=== PATIENT | female | born 1970 ===

== ENCOUNTER 2017-05-12 21:30 | Observation (INO) | payer BC, OTHER ==
[2017-05-12] MEDS ORDERED: Sodium Chloride 0.9% 1,000 ML IV STA (22:02)
[2017-05-12] MEDS ORDERED: DiphenhydrAMINE 50 mg/ml Inj IVP STA (22:02)
--- NOTE | 2017-05-12 22:26 | ED PDOC ---
HPI: Headache Time Seen by Provider: 05/12/17 21:45 Chief Complaint (Nursing): Headache Chief Complaint (Provider): Headache History Per: Patient History/Exam Limitations: no limitations Onset/Duration Of Symptoms: Days (x2) Current Symptoms Are (Timing): Still Present Additional Complaint(s): Ofelia Santa is a 46 year old female who presents to the emergency department with a complaint of left-sided headache radiating to left neck and shoulder associated with nausea and tingling sensation of left hand ongoing for 2 days. Denied focal weakness, blurry vision, or numbness. Patient stated she has been taking Tylenol with no improvement of symptoms. Of note, patient occasionally receives iron infusion for her anemia. PMD: Shira Fleming MD Past Medical History Reviewed: Historical Data, Nursing Documentation, Vital Signs Vital Signs: Last Vital Signs Temp 98.2 F 05/12/17 21:35 Pulse 73 05/12/17 21:35 Resp 16 05/12/17 21:35 BP 128/81 05/12/17 21:35 Pulse Ox 100 05/12/17 21:35 - Medical History PMH: Anemia, Asthma - Surgical History Surgical History: No Surg Hx - Family History Family History: States: No Known Family Hx - Social History Current smoker - smoking cessation education provided: No Alcohol: None Drugs: Denies - Immunization History Hx Tetanus Toxoid Vaccination: No Hx Influenza Vaccination: No Hx Pneumococcal Vaccination: No - Allergies Allergies/Adverse Reactions: Allergies Allergy/AdvReac Type Severity Reaction Status Date / Time aspirin Allergy RASH Uncoded 05/12/17 21:35 Review of Systems ROS Statement: Except As Marked, All Systems Reviewed And Found Negative (and as per HPI) Eyes: Negative for: Vision Change (blurry) Gastrointestinal: Positive for: Nausea Musculoskeletal: Positive for: Neck Pain (left), Shoulder Pain (left) Neurological: Positive for: Headache (left sided), Other (tingling of left hand) . Negative for: Weakness (focal), Numbness Physical Exam - Reviewed Nursing Documentation Reviewed: Yes Vital Signs Reviewed: Yes - Physical Exam Appears: Positive for: Non-toxic, In Acute Distress (and tired appearing) Head Exam: Positive for: ATRAUMATIC, NORMOCEPHALIC Skin: Positive for: Warm, Dry, Pallor Eye Exam: Positive for: EOMI, PERRL, Other (sunken orbits). Negative for: Conjunctival injection ENT: Positive for: Pharynx Is (clear), Other (muc memb moist) Neck: Positive for: Painless ROM, Supple Cardiovascular/Chest: Positive for: Regular Rate, Rhythm, Chest Non Tender. Negative for: Murmur Respiratory: Positive for: Normal Breath Sounds. Negative for: Respiratory Distress Gastrointestinal/Abdominal: Positive for: Soft. Negative for: Tenderness Back: Positive for: Normal Inspection. Negative for: Decreased ROM Extremity: Positive for: Normal ROM. Negative for: Deformity Lymphatic: Negative for: Adenopathy Neurologic/Psych: Positive for: Alert, Oriented (x3), Cerebellar Tests (normal) . Negative for: Motor/Sensory Deficits, Aphasia, Facial Droop - Laboratory Results Result Diagrams: 05/13/17 13:11 05/12/17 22:30 - ECG O2 Sat by Pulse Oximetry: 100 (RA) Pulse Ox Interpretation: Normal Medical Decision Making Medical Decision Making: Initial Impression: LLQ pain; HTN Differential diagnosis: Renal colic, diverticulitis, colitis, abdominal aortic aneurysm, abdominal strain Initial Plan: * Type and screen * CT head without contrast * Labs * Drug screen, urine * Magnesium * Phosphorous * Urine dipstick * Urine * Tylenol 975mg PO * Benadryl 25mg IVP * Reglan 10mg IVP * NS 1,000ml IV per 1,000mls/hr * Accucheck XAM: CT Head Without Intravenous Contrast CLINICAL HISTORY: 46 years old, female; Pain; Headache; Headache not specified; Additional info: Headache. Lt facial numness TECHNIQUE: Axial computed tomography images of the head/brain without intravenous contrast. All CT scans at this facility use one or more dose reduction techniques, viz.: automated exposure control; ma/kV adjustment per patient size (including targeted exams where dose is matched to indication; i.e. head); or iterative reconstruction technique. Coronal and sagittal reformatted images were created and reviewed. COMPARISON: CT - HEAD W/O CONTRAST 09/08/2016 7:02:25 PM FINDINGS: Brain: No intracranial hemorrhage. No mass. No definite edema. Ventricles: No hydrocephalus. Bones/joints: No acute fracture. Soft tissues: Unremarkable. Sinuses: No acute sinusitis. Mastoid air cells: No mastoid effusion. Orbits: Unremarkable as visualized. IMPRESSION: 1. No definite acute intracranial abnormality. Acute infarction may be CT occult within first 24 hours. If a focal deficit persists, consider followup CT or MRI for further evaluation. Thank you for allowing us to participate in the care of your patient. Dictated and Authenticated by: Peter Wisdom MD 05/12/2017 11:01 PM Eastern Time ([place] & [place]) Labs demonstrate anemia at level lower than previous visits. Will hospitalize for transfusion and Hem/Onc consult. Risk/benefits of blood transfusion d/w patient. KHALIDA Cavazos SACK REPAIRER for [facility]. Requests Dr Manuel for Hem onc DW pt findings and plan of care. reports headache improved but still feels tired. Scribe Attestation: Documented by Erinn Wood, acting as a scribe for Shelley Spencer MD. Provider Scribe Attestation: All medical record entries made by the Scribe were at my direction and personally dictated by me. I have reviewed the chart and agree that the record accurately reflects my personal performance of the history, physical exam, medical decision making, and the department course for this patient. I have also personally directed, reviewed, and agree with the discharge instructions and disposition. Disposition - Clinical Impression Clinical Impression: Anemia, Acute headache - Disposition Disposition Time: 23:30 Condition: FAIR - Pt Status Changed To: Hospital Disposition Of: Observation - POA Present On Arrival: None
[2017-05-12 22:43] LABS: BASO # 0.1 K/uL (0.0-0.2); BASO % 1.3 % (0.0-2.0); EOS # 0.3 K/uL (0.0-0.7); HEMOGLOBIN 7.9 g/dL (12.0-16.0); LYMPH # 1.1 K/uL (1.0-4.3); LYMPH % 16.7 % (20.0-40.0); MEAN CELL VOLUME 66.2 fl (81.0-99.0); MEAN CORPUSCULAR HEMOGLOBIN 19.4 pg (27.0-31.0); MEAN CORPUSCULAR HGB CONC 29.4 g/dL (33.0-37.0); MEAN PLATELET VOLUME 7.2 fl (7.2-11.7); MONO # 0.8 K/uL (0.0-0.8); MONO % 11.9 % (0.0-10.0); NEUT # 4.4 K/uL (1.8-7.0); NEUT % 66.1 % (50.0-75.0); RBC 4.09 Mil/uL (3.80-5.20); RED CELL DISTRIBUTION WIDTH 22.4 % (11.5-14.5); WHITE BLOOD COUNT 6.7 K/uL (4.8-10.8)
[2017-05-12] MEDS ORDERED: DiphenhydrAMINE 50 mg/ml Inj ONE (22:48)
[2017-05-12 22:52] LABS: SQUAMOUS EPITHIAL 1 /hpf (0-5); URINE BILIRUBIN NEGATIVE (NEGATIVE); URINE BLOOD SMALL (NEGATIVE); URINE CLARITY CLEAR (Clear); URINE COLOR YELLOW (YELLOW); URINE GLUCOSE (UA) NEG (Normal); URINE LEUKOCYTE ESTERASE TRACE Leu/uL (Negative); URINE NITRATE NEGATIVE (NEGATIVE); URINE PROTEIN NEGATIVE (NEGATIVE); URINE UROBILINOGEN 0.2-1.0 mg/dL (0.2-1.0)
[2017-05-12 22:54] LABS: ALB/GLOB RATIO 1.4 (1.0-2.1); ALT/SGPT 31 U/L (9-52); AST/SGOT 36 U/L (14-36); BLOOD UREA NITROGEN 23 mg/dl (7-17); CALCIUM 9.1 mg/dL (8.4-10.2); GFR AFRICAN-AMERICAN > 60; GFR NON-AFRICAN AMERICAN 60; MAGNESIUM 2.1 MG/DL (1.6-2.3)
[2017-05-12 23:01] LABS: BARBITURATES, UR NEGATIVE (NEGATIVE); BENZODIAZEPINES, UR NEGATIVE (NEGATIVE); OPIATES, UR NEGATIVE (NEGATIVE); PHENCYCLIDINE, UR NEGATIVE (NEGATIVE)
--- NOTE | 2017-05-12 23:02 | CT ---
EXAM: CT Head Without Intravenous Contrast CLINICAL HISTORY: 46 years old, female; Pain; Headache; Headache not specified; Additional info: Headache. Lt facial numness TECHNIQUE: Axial computed tomography images of the head/brain without intravenous contrast. All CT scans at this facility use one or more dose reduction techniques, viz.: automated exposure control; ma/kV adjustment per patient size (including targeted exams where dose is matched to indication; i.e. head); or iterative reconstruction technique. Coronal and sagittal reformatted images were created and reviewed. COMPARISON: CT - HEAD W/O CONTRAST 09/08/2016 7:02:25 PM FINDINGS: Brain: No intracranial hemorrhage. No mass. No definite edema. Ventricles: No hydrocephalus. Bones/joints: No acute fracture. Soft tissues: Unremarkable. Sinuses: No acute sinusitis. Mastoid air cells: No mastoid effusion. Orbits: Unremarkable as visualized. IMPRESSION: 1. No definite acute intracranial abnormality. Acute infarction may be CT occult within first 24 hours. If a focal deficit persists, consider followup CT or MRI for further evaluation.
--- NOTE | 2017-05-13 08:23 | CP.PCM.HP ---
History of Present Illness - History of Present Illness History of Present Illness: pt admitted for symptomatic anemia. c/o ehadache and dizziness started 2 days ago and worsening yestrday. has h/o uterine fibroid under care of urogynecology physician. at present feeling better after 1 unit prbc. Present on Admission - Present on Admission Any Indicators Present on Admission: No Review of Systems - Neurological Neurological: As Per HPI, Dizziness, Headaches Past Patient History - Infectious Disease Hx of Infectious Diseases: None - Past Medical History & Family History Past Medical History?: Yes - Past Social History Smoking Status: Never Smoked - CARDIAC Hx Cardiac Disorders: No - PULMONARY Hx Respiratory Disorders: Yes Hx Asthma: Yes - NEUROLOGICAL Hx Neurological Disorder: No - HEENT Hx HEENT Problems: No - RENAL Hx Chronic Kidney Disease: No - ENDOCRINE/METABOLIC Hx Endocrine Disorders: No - HEMATOLOGICAL/ONCOLOGICAL Hx Blood Disorders: Yes Hx AIDS: No Hx Anemia: Yes Hx Human Immunodeficiency Virus (HIV): No - INTEGUMENTARY Hx Dermatological Problems: No - MUSCULOSKELETAL/RHEUMATOLOGICAL Hx Musculoskeletal Disorders: No Hx Falls: No - GASTROINTESTINAL Hx Gastrointestinal Disorders: No - GENITOURINARY/GYNECOLOGICAL Hx Genitourinary Disorders: No - PSYCHIATRIC Hx Psychophysiologic Disorder: No Hx Substance Use: No - SURGICAL HISTORY Hx Surgeries: No - ANESTHESIA Hx Anesthesia: No Meds Allergies/Adverse Reactions: Allergies Allergy/AdvReac Type Severity Reaction Status Date / Time aspirin Allergy RASH Uncoded 05/12/17 21:35 Physical Exam - Constitutional Appears: Well, Non-toxic, No Acute Distress - Head Exam Head Exam: ATRAUMATIC, NORMAL INSPECTION, NORMOCEPHALIC - Eye Exam Eye Exam: EOMI, Normal appearance, PERRL Pupil Exam: NORMAL ACCOMODATION, PERRL - ENT Exam ENT Exam: Mucous Membranes Moist, Normal Exam - Neck Exam Neck exam: Positive for: Normal Inspection - Respiratory Exam Respiratory Exam: Clear to Auscultation Bilateral, NORMAL BREATHING PATTERN - Cardiovascular Exam Cardiovascular Exam: REGULAR RHYTHM, RRR, +S1, +S2 - GI/Abdominal Exam GI & Abdominal Exam: Normal Bowel Sounds, Soft. absent: Tenderness - Extremities Exam Extremities exam: Positive for: full ROM, normal capillary refill, normal inspection, pedal pulses present - Back Exam Back exam: NORMAL INSPECTION - Neurological Exam Neurological exam: Alert, CN II-XII Intact, Normal Gait, Oriented x3, Reflexes Normal - Psychiatric Exam Psychiatric exam: Normal Affect, Normal Mood - Skin Skin Exam: Dry, Intact, Normal Color, Warm Results - Vital Signs Recent Vital Signs: Last Vital Signs Temp 98.8 F 05/13/17 01:45 Pulse 61 05/13/17 01:45 Resp 18 05/13/17 01:45 BP 110/70 05/13/17 01:45 Pulse Ox 96 05/13/17 01:45 - Labs Result Diagrams: 05/12/17 22:30 05/12/17 22:30 Assessment & Plan (1) DVT prophylaxis Assessment and Plan: scd and ae hose ambulation Status: Acute (2) Acute headache Assessment and Plan: tylenol prn likely r/t anemia Status: Acute (3) Anemia Assessment and Plan: 2 unit prbc, 1 unit in repeat cbc outpt urogynecology physician Status: Acute Decision To Admit - Pt Status Changed To: Hospital Disposition Of: Observation - . Bed Request Type: Med/Surg Admitting Physician: Ruddy Silva
--- NOTE | 2017-05-13 11:41 | CP.PCM.CON ---
History of Present Illness - History of Present Illness History of Present Illness: 46 year old female with a history of mennorrhagia secondary to uterine fibroid, iron deficiency anemia on intermittent parenteral iron, admitted with symptomatic anemia. The patient reports to increasing fatigue, dyspnea on exertion, and dizziness which prompted her to come to the hospital. Her hgb was found to be 6.9. She is currently s/p 2U PRBC and reports to feeling better. Past medical history: menorrhagia, uterine fibroids, iron deficiency Past surgical history: None Family history: Denies hematologic and oncologic problems. Social history: Denies tobacco, alcohol, and illicit drug use. Allergies: Aspirin. Review of systems: All remaining review of systems including HEENT, cardiovascular, respiratory, gastrointestinal, genitourinary, musculoskeletal, dermatologic, neurologic, and psychiatric are negative unless mentioned in the HPI. Past Patient History - Infectious Disease Hx of Infectious Diseases: None - Past Medical History & Family History Past Medical History?: Yes - Past Social History Smoking Status: Never Smoked - CARDIAC Hx Cardiac Disorders: No - PULMONARY Hx Respiratory Disorders: Yes Hx Asthma: Yes - NEUROLOGICAL Hx Neurological Disorder: No - HEENT Hx HEENT Problems: No - RENAL Hx Chronic Kidney Disease: No - ENDOCRINE/METABOLIC Hx Endocrine Disorders: No - HEMATOLOGICAL/ONCOLOGICAL Hx Blood Disorders: Yes Hx AIDS: No Hx Anemia: Yes Hx Human Immunodeficiency Virus (HIV): No - INTEGUMENTARY Hx Dermatological Problems: No - MUSCULOSKELETAL/RHEUMATOLOGICAL Hx Musculoskeletal Disorders: No Hx Falls: No - GASTROINTESTINAL Hx Gastrointestinal Disorders: No - GENITOURINARY/GYNECOLOGICAL Hx Genitourinary Disorders: No - PSYCHIATRIC Hx Psychophysiologic Disorder: No Hx Substance Use: No - SURGICAL HISTORY Hx Surgeries: No - ANESTHESIA Hx Anesthesia: No Meds Allergies/Adverse Reactions: Allergies Allergy/AdvReac Type Severity Reaction Status Date / Time aspirin Allergy RASH Uncoded 05/12/17 21:35 - Medications Medications: Current Medications Acetaminophen (Tylenol 325mg Tab) 650 mg PO Q4 PRN PRN Reason: Pain, Mild (1-3) Physical Exam - Head Exam Head Exam: ATRAUMATIC - Eye Exam Eye Exam: Normal appearance - ENT Exam ENT Exam: Mucous Membranes Dry - Respiratory Exam Respiratory Exam: NORMAL BREATHING PATTERN - Cardiovascular Exam Cardiovascular Exam: +S1, +S2 - GI/Abdominal Exam GI & Abdominal Exam: Normal Bowel Sounds - Extremities Exam Extremities exam: Positive for: normal inspection - Neurological Exam Neurological exam: Oriented x3 - Psychiatric Exam Psychiatric exam: Normal Affect, Normal Mood - Skin Skin Exam: Warm Results - Vital Signs Recent Vital Signs: Last Vital Signs Temp 97.9 F 05/13/17 08:24 Pulse 60 05/13/17 08:24 Resp 20 05/13/17 08:24 BP 119/76 05/13/17 08:24 Pulse Ox 98 05/13/17 08:24 - Labs Result Diagrams: 05/12/17 22:30 05/12/17 22:30 Assessment & Plan (1) Anemia Assessment and Plan: iron deficiency secondary to menorrhagia from uterine fibroid s/p 2U PRBC will give a dose of Venofer today cleared from Heme standpoint if H/H improved for D/C oupatient [facility] C[facility] DIRECTOR f/u Thank you for this interesting consult. Status: Acute
--- NOTE | 2017-05-13 11:43 | CARD ---
APPROVED REPORT EKG Measurement Heart [id number] MT [id number] <Conclusion> Normal sinus rhythm with sinus arrhythmia Normal ECG
[2017-05-13 13:15] LABS: MEAN CORPUSCULAR HEMOGLOBIN 21.2 pg (27.0-31.0); MEAN CORPUSCULAR HGB CONC 30.1 g/dL (33.0-37.0); RBC 4.74 Mil/uL (3.80-5.20); RED CELL DISTRIBUTION WIDTH 25.3 % (11.5-14.5); WHITE BLOOD COUNT 6.1 K/uL (4.8-10.8)
[2017-05-13 13:17] LABS: MEAN CELL VOLUME 70.5 fl (81.0-99.0)
[2017-05-13 16:16] VITALS: BP 123/78; PULSE 70; RESP 18; TEMP 98.1
[2017-05-13 16:46] VITALS: O2SAT 100
[2017-05-13 18:32] LABS: FOLATE 9.9 ng/mL
--- NOTE | 2017-05-14 14:30 | CP.PCM.DIS ---
Provider - Provider Date of Admission: 05/13/17 00:08 Attending physician: Ruddy Silva MD Time Spent in preparation of Discharge (in minutes): 15 Diagnosis - Discharge Diagnosis (1) DVT prophylaxis Status: Acute (2) Acute headache Status: Acute (3) Anemia Status: Acute Hospital Course - Lab Results Lab Results: Most Recent Lab Values WBC 6.1 K/uL (4.8-10.8) 05/13/17 13:11 RBC 4.74 Mil/uL (3.80-5.20) 05/13/17 13:11 Hgb 10.0 g/dL (12.0-16.0) L D 05/13/17 13:11 Hct 33.4 % (34.0-47.0) L 05/13/17 13:11 MCV 70.5 fl (81.0-99.0) L D 05/13/17 13:11 MCH 21.2 pg (27.0-31.0) L 05/13/17 13:11 MCHC 30.1 g/dL (33.0-37.0) L 05/13/17 13:11 RDW 25.3 % (11.5-14.5) H 05/13/17 13:11 Plt Count 398 K/uL (130-400) 05/13/17 13:11 MPV 7.2 fl (7.2-11.7) 05/12/17 22:30 Neut % (Auto) 66.1 % (50.0-75.0) 05/12/17 22:30 Lymph % (Auto) 16.7 % (20.0-40.0) L 05/12/17 22:30 York % (Auto) 11.9 % (0.0-10.0) H 05/12/17 22:30 Eos % (Auto) 4.0 % (0.0-4.0) 05/12/17 22:30 Baso % (Auto) 1.3 % (0.0-2.0) 05/12/17 22:30 Neut # 4.4 K/uL (1.8-7.0) 05/12/17 22:30 Lymph # 1.1 K/uL (1.0-4.3) 05/12/17 22:30 York # 0.8 K/uL (0.0-0.8) 05/12/17 22:30 Eos # 0.3 K/uL (0.0-0.7) 05/12/17 22:30 Baso # 0.1 K/uL (0.0-0.2) 05/12/17 22:30 Retic Count 1.2 % (0.5-1.5) 05/13/17 13:11 Sodium 137 mmol/l (132-148) 05/12/17 22:30 Potassium 3.7 MMOL/L (3.6-5.0) 05/12/17 22:30 Chloride 106 mmol/L (98-107) 05/12/17 22:30 Carbon Dioxide 22 mmol/L (22-30) 05/12/17 22:30 Anion Gap 13 (10-20) 05/12/17 22:30 BUN 23 mg/dl (7-17) H 05/12/17 22:30 Creatinine 1.0 mg/dL (0.7-1.2) 05/12/17 22:30 Est GFR ( Amer) > 60 05/12/17 22:30 Est GFR (Non-Af Amer) 60 05/12/17 22:30 Random Glucose 87 mg/dL (65-105) 05/12/17 22:30 Calcium 9.1 mg/dL (8.4-10.2) 05/12/17 22:30 Phosphorus 3.4 mg/dl (2.5-4.5) 05/12/17 22:30 Magnesium 2.1 MG/DL (1.6-2.3) 05/12/17 22:30 Ferritin 4.0 ng/mL 05/13/17 13:11 Total Bilirubin 0.3 mg/dl (0.2-1.3) 05/12/17 22:30 AST 36 U/L (14-36) 05/12/17 22:30 ALT 31 U/L (9-52) 05/12/17 22:30 Alkaline Phosphatase 65 U/L (38-126) 05/12/17 22:30 Total Protein 7.0 G/DL (6.3-8.2) 05/12/17 22:30 Albumin 4.0 g/dL (3.5-5.0) 05/12/17 22:30 Globulin 3.0 gm/dL (2.2-3.9) 05/12/17 22:30 Albumin/Globulin Ratio 1.4 (1.0-2.1) 05/12/17 22:30 Vitamin B12 572 pg/mL (239-931) 05/13/17 13:11 Folate 9.9 ng/mL 05/13/17 13:11 Urine Color Yellow (YELLOW) 05/12/17 22:31 Urine Clarity Clear (Clear) 05/12/17 22: Urine pH 6.0 (5.0-8.0) 05/12/17 22:31 Ur Specific Hagerman 1.025 (1.003-1.030) 05/12/17 22:31 Urine Protein Negative mg/dL (NEGATIVE) 05/12/17 22: Urine Glucose (UA) Neg mg/dL (Normal) 05/12/17 22: Urine Ketones Negative mg/dL (NEGATIVE) 05/12/17 22:31 Urine Blood Small (NEGATIVE) 05/12/17 22:31 Urine Nitrate Negative (NEGATIVE) 05/12/17 22: Urine Bilirubin Negative (NEGATIVE) 05/12/17 22: Urine Urobilinogen 0.2-1.0 mg/dL (0.2-1.0) 05/12/17 22:31 Ur Leukocyte Esterase Trace Maximino/uL (Negative) 05/12/17 22:31 Urine RBC (Auto) 4 /hpf (0-3) H 05/12/17 22:31 Urine Microscopic WBC 2 /hpf (0-5) 05/12/17 22:31 Ur Squamous Epith Cells 1 /hpf (0-5) 05/12/17 22:31 Urine Opiates Screen Negative (NEGATIVE) 05/12/17 22:30 Urine Methadone Screen Negative (NEGATIVE) 05/12/17 22:30 Ur Barbiturates Screen Negative (NEGATIVE) 05/12/17 22:30 Ur Phencyclidine Scrn Negative (NEGATIVE) 05/12/17 22:30 Ur Amphetamines Screen Negative (NEGATIVE) 05/12/17 22:30 U Benzodiazepines Scrn Negative (NEGATIVE) 05/12/17 22:30 U Oth Cocaine Metabols Negative (NEGATIVE) 05/12/17 22:30 U Cannabinoids Screen Negative (NEGATIVE) 05/12/17 22:30 Blood Type O POSITIVE 05/12/17 22:12 Antibody Screen Negative 05/12/17 22:12 Crossmatch See Detail 05/12/17 22:12 BBK History Checked Patient has bt 05/12/17 22:12 Discharge Exam - Head Exam Head Exam: ATRAUMATIC, NORMOCEPHALIC Discharge Plan - Follow Up Plan Condition: FAIR Disposition: HOME/ ROUTINE Instructions: Iron Sucrose (By injection), Iron Rich Diet (DC), Blood Transfusion (DC), Anemia (DC) Additional Instructions: please follow up with [facility] tomorrow 05/14/17 final dx- symptomatic anemia rtedprn Referrals: [facility] [Provider Group]
== END 2017-05-13 17:03 | disposition home or self-care (01) ==
LOC: H.ER 21:30 → H.ERHOLD 05-13 00:08 → H.MEDSURG1 05-13 01:45
PROVIDERS: ADMIT Family Medicine; ATTEND Family Medicine
DX: D50.9 Iron deficiency anemia, unspecified (principal); D25.9 Leiomyoma of uterus, unspecified; N92.0 Excessive and frequent menstruation with regular cycle; R51 Headache; I10 Essential (primary) hypertension; J45.909 Unspecified asthma, uncomplicated; Z88.6 Allergy status to analgesic agent
CPT/HCPCS: 36415; 36430; 70450; 80053; 81003; 82607; 82728; 82746; 83735; 84100; 85025; 85027; 85044; 86850; 86900; 86920; 86921; 86922; 93005; 96361; 96365; 96375; 99285; G0378; G0480; J1200; J1756; J2765; J7040; P9051

== ENCOUNTER 2018-03-12 11:27 | Emergency (ER) | payer BC ==
[2018-03-12 11:34] VITALS: BMI 26.9
[2018-03-12] MEDS ORDERED: Sodium Chloride 0.9% 1,000 ML IV ONE (12:15)
--- NOTE | 2018-03-12 12:22 | ED PDOC ---
HPI: General Adult Time Seen by Provider: 03/12/18 11:44 Chief Complaint (Nursing): Dizziness/Lightheaded Chief Complaint (Provider): Dizziness/Lightheaded History Per: Patient History/Exam Limitations: no limitations Onset/Duration Of Symptoms: Days (yesterday afternoon) Current Symptoms Are (Timing): Still Present Additional Complaint(s): 47 year old female, with a past medical history of thyroid cancer presented to the ED complaining of dizziness and left sided numbness since yesterday afternoon. She reports nausea and palpitations. She denies vomiting, fever, sore throat, ear pain, vision changes, chest pain, abdominal pain, back pain, dysuria, and sick contacts. PCP: Dr. Fleming Past Medical History Reviewed: Historical Data, Nursing Documentation, Vital Signs Vital Signs: Last Vital Signs Temp 98.2 F 03/12/18 11:32 Pulse 67 03/12/18 11:32 Resp 20 03/12/18 11:32 BP 132/80 03/12/18 11:32 Pulse Ox 100 03/12/18 12:31 - Medical History PMH: Anemia, Asthma Denies: HIV, Chronic Kidney Disease - Surgical History Other surgeries: Hysterectomy - Family History Family History: States: Other Other Family History: breast cancer, thyroid cancer - Social History Current smoker - smoking cessation education provided: No Alcohol: None Drugs: Denies - Immunization History Hx Tetanus Toxoid Vaccination: No Hx Influenza Vaccination: No Hx Pneumococcal Vaccination: No - Allergies Allergies/Adverse Reactions: Allergies Allergy/AdvReac Type Severity Reaction Status Date / Time aspirin Allergy RASH Uncoded 05/12/17 21:35 Review of Systems ROS Statement: Except As Marked, All Systems Reviewed And Found Negative Constitutional: Negative for: Fever, Chills Eyes: Negative for: Vision Change ENT: Negative for: Ear Pain, Throat Pain (sore throat) Cardiovascular: Positive for: Palpitations. Negative for: Chest Pain Gastrointestinal: Positive for: Nausea. Negative for: Vomiting, Abdominal Pain Genitourinary Female: Negative for: Dysuria Musculoskeletal: Negative for: Back Pain Neurological: Positive for: Numbness (left side of face), Dizziness, Other Physical Exam - Reviewed Nursing Documentation Reviewed: Yes Vital Signs Reviewed: Yes - Physical Exam Appears: Positive for: Non-toxic, No Acute Distress Head Exam: Positive for: ATRAUMATIC, NORMOCEPHALIC Skin: Positive for: Normal Color, Warm, Dry Eye Exam: Positive for: Normal appearance Neck: Positive for: Normal, Painless ROM Cardiovascular/Chest: Positive for: Regular Rate, Rhythm. Negative for: Murmur Respiratory: Positive for: Normal Breath Sounds. Negative for: Wheezing, Respiratory Distress Gastrointestinal/Abdominal: Positive for: Normal Exam, Soft. Negative for: Tenderness Extremity: Positive for: Normal ROM Neurologic/Psych: Positive for: Alert, Oriented. Negative for: Motor/Sensory Deficits - Laboratory Results Result Diagrams: 03/12/18 12:15 03/12/18 12:15 - ECG O2 Sat by Pulse Oximetry: 100 (RA) Pulse Ox Interpretation: Normal Medical Decision Making Medical Decision Making: Initial Impression: headache syndrome, anxiety Initial Plan: CT Head ECG CMP Magnesium Phosphorous CBC Sodium chloride 1000mL IV Scribe Attestation: Documented by Jim Ortiz acting as a scribe for Megan Blake MD. Provider Scribe Attestation: All medical record entries made by the Scribe were at my direction and personally dictated by me. I have reviewed the chart and agree that the record accurately reflects my personal performance of the history, physical exam, medical decision making, and the department course for this patient. I have also personally directed, reviewed, and agree with the discharge instructions and disposition. Headache slight and still present. patient relieved to know that CT head and labs do not show acute process. Discussed follow up with PMD or neurology for further evaluation as warranted. Disposition - Clinical Impression Clinical Impression: Dizzy spells, Headache Doctor Will See Patient In The: Office Counseled Patient/Family Regarding: Diagnosis, Need For Followup - Disposition Referrals: [facility]use [Outside] Disposition: Routine/Home Disposition Time: 14:00 Condition: STABLE Instructions: Headache, Adult Forms: [facility] (French) - POA Present On Arrival: None
[2018-03-12 12:24] LABS: BASO # 0.1 K/uL (0.0-0.2); BASO % 1.3 % (0.0-2.0); EOS # 0.1 K/uL (0.0-0.7); EOS % 1.9 % (0.0-4.0); HEMOGLOBIN 14.3 g/dL (12.0-16.0); LYMPH # 0.9 K/uL (1.0-4.3); LYMPH % 15.4 % (20.0-40.0); MEAN CELL VOLUME 96.6 fl (81.0-99.0); MEAN CORPUSCULAR HEMOGLOBIN 32.1 pg (27.0-31.0); MEAN CORPUSCULAR HGB CONC 33.2 g/dL (33.0-37.0); MEAN PLATELET VOLUME 7.8 fl (7.2-11.7); MONO # 0.4 K/uL (0.0-0.8); MONO % 6.6 % (0.0-10.0); NEUT # 4.5 K/uL (1.8-7.0); NEUT % 74.8 % (50.0-75.0); RBC 4.46 Mil/uL (3.80-5.20); RED CELL DISTRIBUTION WIDTH 12.6 % (11.5-14.5); WHITE BLOOD COUNT 6.1 K/uL (4.8-10.8)
[2018-03-12 12:42] LABS: ALB/GLOB RATIO 1.3 (1.0-2.1); ALBUMIN 4.5 g/dL (3.5-5.0); ALT/SGPT 27 U/L (9-52); AST/SGOT 27 U/L (14-36); BLOOD UREA NITROGEN 14 mg/dl (7-17); CALCIUM 9.3 mg/dL (8.4-10.2); GFR AFRICAN-AMERICAN > 60; GFR NON-AFRICAN AMERICAN > 60
--- NOTE | 2018-03-12 12:54 | CT ---
PROCEDURE: CT HEAD WITHOUT CONTRAST. HISTORY: dizziness, headache COMPARISON: 05/12/2017 TECHNIQUE: Axial computed tomography images were obtained through the head/brain without intravenous contrast. Coronal and sagittal reconstructed images. Radiation dose: Total exam DLP = 819.23 mGy-cm. This CT exam was performed using one or more of the following dose reduction techniques: Automated exposure control, adjustment of the mA and/or kV according to patient size, and/or use of iterative reconstruction technique. FINDINGS: HEMORRHAGE: No intracranial hemorrhage. BRAIN: No mass effect or edema. No atrophy or chronic microvascular ischemic changes. VENTRICLES: Unremarkable. No hydrocephalus. CALVARIUM: Unremarkable. PARANASAL SINUSES: Unremarkable as visualized. No significant inflammatory changes. MASTOID AIR CELLS: Unremarkable as visualized. No inflammatory changes. OTHER FINDINGS: None. IMPRESSION: No acute intracranial abnormalities. No significant findings to account for the clinical presentation. No significant interval change compared to the prior examination(s).
[2018-03-12 14:41] VITALS: BP 120/78; PULSE 78; RESP 18; TEMP 97; O2SAT 98
--- NOTE | 2018-03-15 11:41 | CARD ---
APPROVED REPORT EKG Measurement Heart [id number] <Conclusion> Normal sinus rhythm Possible Left atrial enlargement Borderline ECG
== END 2018-03-12 14:41 | disposition home or self-care (01) ==
LOC: H.ER 11:27
DX: R42 Dizziness and giddiness (principal); R51 Headache; J45.909 Unspecified asthma, uncomplicated; Z85.850 Personal history of malignant neoplasm of thyroid
CPT/HCPCS: 70450; 80053; 81025; 82948; 83735; 84100; 85025; 99285; J7030